=== PATIENT | female | born 1980 | race Caucasian/White ===

== ENCOUNTER 2016-11-26 14:37 | Emergency (ER) | payer OTHER ==
[~2016-11-26] VITALS: Ht 177.8 cm; Wt 89.8 kg
--- NOTE | 2016-11-26 15:08 | NUR ---
IV ACCESSED TO [facility] 20. BLOOD SAMPLE SENT TO LAB
[2016-11-26 15:09] LABS: BASOPHILS % (AUTO) 0.5 % (0.0-2.0); EOSINOPHILS # (AUTO) 0.2 /CMM (0.0-0.7); EOSINOPHILS % (AUTO) 2.5 % (0.0-6.0); HEMATOCRIT 39 % (33-45); HEMOGLOBIN 13.2 g/dL (11.5-14.8); LYMPHOCYTES # (AUTO) 2.1 /CMM (0.8-4.8); LYMPHOCYTES % (AUTO) 27.5 % (20.0-44.0); MEAN CORPUSCULAR HEMOGLOBIN 31 PG (26.0-33.0); MEAN CORPUSCULAR HGB CONC 34 g/dl (31.0-36.0); MEAN CORPUSCULAR VOLUME 92 fL (82-100); MONOCYTES # (AUTO) 0.4 /CMM (0.1-1.30); MONOCYTES % (AUTO) 5.5 % (2.0-12.0); PLATELET COUNT (AUTO) 261 /CMM (150-450); RED BLOOD CELL COUNT(AUTO) 4.26 MIL/uL (4.0-5.2); WHITE BLOOD COUNT (AUTO) 7.7 K/uL (4.3-11.0)
[2016-11-26 15:19] LABS: CREATININE 1.1 mg/dL (0.6-1.3); POTASSIUM 3.6 mmol/L (3.5-5.1)
--- NOTE | 2016-11-26 15:21 | NUR ---
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 PATIENT IS AAO4, APPEARS IN NO APPARENT DISTRESS, RESPIRATION EVEN AND UNLABORED. SKIN IS WARM TO TOUCH AND NON LABORED,. NO CHEST PAIN. SKIN IS WARM TO TOUCH. VSS.
[2016-11-26 15:27] LABS: TROPONIN I 0.034 ng/mL (0.00-0.056)
[2016-11-26 15:31] LABS: ALBUMIN 4.1 g/dL (3.4-5.0); BILIRUBIN,DIRECT 0.1 mg/dL (0.0-0.2); BILIRUBIN,TOTAL 0.5 mg/dL (0.2-1.0); TOTAL PROTEIN, SERUM 7.5 g/dL (6.4-8.2)
[2016-11-26 16:47] LABS: D-DIMER 0.87 mg/L(FEU (0.17-0.50); INR 0.94 (0.87-1.13)
[2016-11-26] MEDS ORDERED: IV NS 0.9% 250 ML IV ONE (17:23)
[2016-11-26] MEDS ORDERED: IOHEXOL-350 100 ML VIAL IV ONE (17:24)
[2016-11-26] MEDS ORDERED: CT SWABBABLE VALVE TRANS SET 1 EA INFUS.SET MC ONE (17:24)
--- NOTE | 2016-11-26 17:59 | NUR ---
Patient is resting comfortably in bed with eyes closed. Easily aroused. VSS
[2016-11-26 19:01] VITALS: BP 122/70
--- NOTE | 2016-11-26 19:01 | NUR ---
Patient discharged to home in stable condition. Written and verbal after care instructions given. Patient verbalizes understanding of instruction.
== END 2016-11-26 19:11 | disposition home or self-care (01) ==
LOC: ER 14:39
DX: I80.9 Phlebitis and thrombophlebitis of unspecified site (principal)
CPT/HCPCS: 36415; 71010; 71275; 80048; 80076; 83880; 84484; 84703; 85025; 85378; 85730; 93005; 93971; 99285; A4606; J7050; Q9967; Z7610